=== PATIENT | female | born 1995 | race Caucasian/White ===

== ENCOUNTER 2017-03-19 19:06 | Emergency (ER) | payer MEDICAID ==
[~2017-03-19 19:06] MED LIST: ALBUTEROL20 ml INH; BIRTH CONTROL PILL PO; WELLBUTRIN PO
== END 2017-03-23 12:43 | disposition left against medical advice (07) ==
LOC: CED 19:06
DX: Z53.21 Procedure and treatment not carried out due to patient leaving prior to being seen by health care provider (principal)